=== PATIENT | male | born 1960 | race Caucasian/White ===

== ENCOUNTER 2017-08-03 15:48 | Emergency (ER) | payer OTHER, MEDICARE ==
[2017-08-03] MEDS ORDERED: ACETAMINOPHEN TAB 500 MG TAB PO STA (16:18)
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
--- NOTE | 2017-08-03 16:52 | XR ---
EXAMINATION TYPE: XR cervical spine trauma DATE OF EXAM: 08/03/2017 COMPARISON: NONE HISTORY: Neck pain TECHNIQUE: 6 views FINDINGS: There is plate with screws fusing anteriorly the cervical spine from C5 to C7. Posterior el ements are intact. I see no compression fracture. The neural foramina are fairly well-maintained. Riccardo antoaxial facet joint is normal. There are no cervical ribs. IMPRESSION: Cervical spine fusion surgery. No fracture seen. Anterior spurring noted at C4-5.
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
--- NOTE | 2017-08-03 16:57 | XR ---
EXAMINATION TYPE: XR pelvis AP view DATE OF EXAM: 08/03/2017 COMPARISON: None HISTORY: Pelvic pain TECHNIQUE: Single view FINDINGS: Pelvic ring is intact. Proximal femurs and hip joints are intact. Sacroiliac joints appear normal. IMPRESSION: No acute abnormality of the pelvis.
--- NOTE | 2017-08-03 16:58 | XR ---
EXAMINATION TYPE: XR thoracic spine 2V DATE OF EXAM: 08/03/2017 COMPARISON: NONE HISTORY: Back pain TECHNIQUE: 3 views FINDINGS: The vertebra have normal alignment. Posterior elements are intact. There is no paraspinal m ass. There is spurring of the endplates. I see no compression fracture. IMPRESSION: Degenerative spurring. No fracture seen.
[2017-08-03 17:35] VITALS: BP 144/78; PULSE 78; RESP 18; TEMP 98
--- NOTE | 2017-08-04 05:52 | CDI ---
Dear Karel Hayward DO: Please do addendum site of the Contusion. Thank you, Denise Montero, Project Management Manager. If you have any questions, please contact Manager Agriculture at [phone]. [facility]
== END 2017-08-03 17:35 | disposition home or self-care (01) ==
LOC: EC 15:48
DX: S40.012A Contusion of left shoulder, initial encounter (principal); M25.551 Pain in right hip; E78.5 Hyperlipidemia, unspecified; F41.9 Anxiety disorder, unspecified; Z87.891 Personal history of nicotine dependence; Z79.899 Other long term (current) drug therapy; Z88.0 Allergy status to penicillin; Z88.8 Allergy status to other drugs, medicaments and biological substances; Z91.013 Allergy to seafood; Z85.46 Personal history of malignant neoplasm of prostate; Z90.79 Acquired absence of other genital organ(s); Z98.890 Other specified postprocedural states; V43.52XA Car driver injured in collision with other type car in traffic accident, initial encounter; Y92.410 Unspecified street and highway as the place of occurrence of the external cause
CPT/HCPCS: 71046; 72050; 72070; 72170; 99284

== ENCOUNTER → 2018-04-06 | Outpatient (CLI) | payer MEDICARE, OTHER ==
--- NOTE | 2018-04-09 11:09 | CT ---
EXAMINATION TYPE: CT pelvis wo/w con DATE OF EXAM: 04/06/2018 COMPARISON: Outside films dated 03/21/2018 HISTORY: LLQ pain, abn hip xray, history of prostate CA CT DLP: 1887.6 mGycm Automated exposure control for dose reduction was used. CONTRAST: Performed without and with IV Contrast, patient injected with 100 mL of Isovue 300. Unenhanced follow ed by contrast enhanced CT of the pelvis was performed. Bone and soft tissue window settings are subm itted. FINDINGS: There is no evidence for fracture or dislocation. No osseous lesion is identified at this time. Mild degenerative joint space narrowing. Mild lower lumbar degenerative disc disease. No pelvic masses jeremy ntified. Penile prosthesis noted. No pathologic enhancement identified. IMPRESSION: NO FRACTURE, DISLOCATION OR OSSEOUS LESION.
== END | disposition home or self-care (01) ==
LOC: RADCTMAIN 07:57
PROVIDERS: ATTEND Family Medicine
DX: R93.5 Abnormal findings on diagnostic imaging of other abdominal regions, including retroperitoneum (principal)
CPT/HCPCS: 72194; Q9967

== ENCOUNTER → 2018-12-26 | Outpatient (CLI) | payer OTHER, MEDICARE ==
--- NOTE | 2018-12-26 15:44 | MR ---
EXAMINATION TYPE: MR lumbar spine wo/w con DATE OF EXAM: 12/26/2018 COMPARISON: MRI of the lumbar spine dated 07/19/[address] pelvis dated 04/06/2018. HISTORY: DDD with radiculopathy. Increasing pain since July 2017. TECHNIQUE: Multiplanar, multisequence images of the lumbar spine were acquired utilizing 9 ml mL intravenous Wing avist gadolinium contrast. FINDINGS: Vertebral bodies maintain normal vertebral body heights and alignment. Multilevel disc samira ccation is seen. Bone marrow signal is within normal limits other than a T2/T1 hyperintense vertebral body hemangioma of L5. Conus medullaris is unremarkable terminating at L1. Incidentally noted retroa ortic left renal vein. Incomplete evaluation and incomplete visualization of the kidneys. L1-L2: There is a right eccentric disc bulge creating moderate right and mild left neural foraminal n arrowing without spinal canal stenosis. Mild facet arthropathy. L2-L3: There is a broad-based disc bulge, also slightly right eccentric creating mild left and modera te right neural foraminal narrowing without spinal canal stenosis. Facet arthropathy is also seen. L3-L4: There is a small central annular tear and broad-based disc bulge resulting in moderate bilater al neural foraminal narrowing without spinal canal stenosis. Mild facet arthropathy. L4-L5: There is a right foraminal disc herniation on sagittal T2 nonfat sat image 11 in combination w ith facet arthropathy and ligamentum flavum buckling contributing to severe right neural foraminal na rrowing with mass effect on the exiting L4 nerve root. Findings are superimposed on a broad-based dis c bulge contributing to moderate left neural foraminal narrowing and overall very mild spinal canal s tenosis. L5-S1: There is a small right paracentral annular tear and disc herniation superimposed on a broad-ba sed disc bulge. Facet arthropathy is also noted contributing to moderate bilateral neural foraminal n arrowing without spinal canal stenosis. No suspicious postcontrast enhancement is seen. IMPRESSION: 1. Right foraminal disc herniation at L4-L5 in combination with facet arthropathy and ligamentum flav um buckling create severe right neural foraminal narrowing and mass effect on the exiting L4 nerve ro ot. Findings contribute overall very mild spinal canal stenosis. 2. Small right paracentral annular tear and disc herniation at L5-S1 contributing to moderate right n eural foraminal narrowing. Moderate left neural foraminal narrowing is also seen as result of the bro ad-based disc bulge and facet arthropathy. 3. Small central annular tear at L3-L4. 4. Overall moderate multilevel degenerative disc disease of the lumbar spine resulting in variable de grees of neural foraminal narrowing as detailed above. 5. No abnormal postcontrast enhancement.
== END ==
LOC: RADMRIMAIN 10:56
PROVIDERS: ATTEND Physical Medicine & Rehabilitation
DX: M48.07 Spinal stenosis, lumbosacral region (principal); M48.061 Spinal stenosis, lumbar region without neurogenic claudication; M51.17 Intervertebral disc disorders with radiculopathy, lumbosacral region; M51.16 Intervertebral disc disorders with radiculopathy, lumbar region; M46.97 Unspecified inflammatory spondylopathy, lumbosacral region; M46.96 Unspecified inflammatory spondylopathy, lumbar region; M79.89 Other specified soft tissue disorders
CPT/HCPCS: 72158; A9585

== ENCOUNTER → 2019-03-19 | Outpatient (CLI) | payer OTHER, MEDICARE ==
[2019-03-19 12:16] VITALS: BP 127/86; PULSE 84; RESP 18
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
== END | disposition home or self-care (01) ==
LOC: PNWHC3 11:43
PROVIDERS: ATTEND Specialist
DX: G89.29 Other chronic pain (principal); M47.26 Other spondylosis with radiculopathy, lumbar region; M46.96 Unspecified inflammatory spondylopathy, lumbar region; Z87.891 Personal history of nicotine dependence; Z88.0 Allergy status to penicillin; Z91.013 Allergy to seafood; Z88.8 Allergy status to other drugs, medicaments and biological substances; Z79.899 Other long term (current) drug therapy
CPT/HCPCS: 99211

== ENCOUNTER 2019-03-28 06:59 | Day surgery (SDC) | payer MEDICARE, OTHER ==
[2019-03-26 14:49] VITALS: BMI 65.9
[~2019-03-28 06:59] MED LIST: IOPAMIDOL M200 10 ML VIAL ONE; LACTATED RINGERS 1,000 ML IV SCH; LIDOCAINE 4% (PF) 5 ML AMP ONE; MIDAZOLAM 2 MG/2 ML VIAL ONE
[2019-03-28 07:19] VITALS: TEMP 97.3
[2019-03-28] MEDS ORDERED: LIDOCAINE 1% 20 ML VIAL (10MG/ML) FOR IV START INTRADERMA ONE (07:23)
[2019-03-28] MEDS ORDERED: IV FLUID CONTINUATION 1,000 ML IV ONE (08:55)
--- NOTE | 2019-03-28 09:11 | FL ---
Fluoroscopy HISTORY: Pain 7 seconds fluoroscopy time supplied to the referring clinician. 3 intraoperative C-arm images docume nt the procedure. See dictated report from anesthesia.
[2019-03-28 09:15] VITALS: BP 151/93; PULSE 67; RESP 16
--- NOTE | 2019-03-28 10:23 | P.PCN ---
Date of Procedure: 03/28/19 Procedure(s) Performed: PREOPERATIVE DIAGNOSIS : Lumbar spondylosis with Facet Arthropathy without myelopathy POSTOPERATIVE DIAGNOSIS: same PROCEDURE: First Diagnostic lumbar medial branch block with fluoroscopy at L2, L3, L4, L5 [bilateral] which covers facets L3-4, L4-5 and L5-S1 ANESTHESIA: Local anesthetic; moderate IV sedation with Versed, sedation time 19 minutes Fluoroscopy was used for the procedure and images were saved in the radiology portion of the chart. Surgeon: Cristiana Llanos MD PROCEDURE INDICATION: Lumbar back pain without radiculopathy, not responsive to conservative management. PROCEDURE DESCRIPTION: the patient was seen and identified in the preop holding area , risks and benefits and possible complications of the procedure and alternatives were discussed with the patient, and the patient agreed to proceed with the procedure and signed the consent . IV was started , vital signs were monitored during the procedure and fluoroscopy was used to maximize the benefit and accuracy of the needle placement, and sedation was given to decrease patient anxiety. Patient was taken to the procedure room and placed in prone position. The lumbar region was prepped using chlorhexidineX-2. Under strict sterile technique using AP fluoroscopy the bilateral sacral ala were identified and using ipsilateral oblique fluoroscopy ,the junction of the transverse process and the superior articulating process of the L3, L4, L5 vertebra which corresponds to the fluoroscopy image of the eye of the Cal dog for the medial branches were identified. Subsequently, after local infiltration of skin with lidocaine 1% 0.2 mL at each level , a 25-gauge 3.5" Quincke-type needle was placed at the junction of the base of the transverse process and the superior articular process at the appropriate level as well as the sacral ala, and the needle was advanced until the periosteum contacted, needle placement confirmed with AP and oblique fluoroscopy, 0.2 mL of Isovue 200 per level was injected which revealed no vascular uptake and after negative aspiration, 0.5 mL of [lido piot 4%] was injected at each level and the needle subsequently removed . At the end of the procedure and the needles were removed and a bandage applied after the skin was cleaned. The patient was taken to recovery room in stable condition and monitors in the recovery room for 20-30 minutes and discharged home in stable condition after discharge criteria met and patient will follow up in clinic in 2 weeks EBL: Minimal COMPLICATION: None.
== END 2019-03-28 09:25 | disposition home or self-care (01) ==
LOC: ORPAIN 06:59
PROVIDERS: ATTEND Anesthesiology
DX: G89.29 Other chronic pain (principal); M47.816 Spondylosis without myelopathy or radiculopathy, lumbar region; J45.909 Unspecified asthma, uncomplicated; E78.5 Hyperlipidemia, unspecified; M19.90 Unspecified osteoarthritis, unspecified site; F41.9 Anxiety disorder, unspecified; F32.9 Major depressive disorder, single episode, unspecified; Z87.891 Personal history of nicotine dependence; Z79.899 Other long term (current) drug therapy; Z88.0 Allergy status to penicillin; Z88.8 Allergy status to other drugs, medicaments and biological substances; Z91.013 Allergy to seafood; Z85.46 Personal history of malignant neoplasm of prostate; Z87.442 Personal history of urinary calculi; Z98.890 Other specified postprocedural states; Z90.79 Acquired absence of other genital organ(s); Z98.1 Arthrodesis status; Z82.49 Family history of ischemic heart disease and other diseases of the circulatory system
CPT/HCPCS: 64493; 64494; 64495; J2001; J2250; Q9966; 99152

== ENCOUNTER 2019-04-11 07:01 | Day surgery (SDC) | payer MEDICARE, OTHER ==
[2019-04-10 10:23] VITALS: BMI 29.9
[~2019-04-11 07:01] MED LIST changes: +BUPIVACAINE (PF) 0.5% 30 ML VIAL ONE; -IOPAMIDOL M200 10 ML VIAL ONE; -LIDOCAINE 4% (PF) 5 ML AMP ONE
[2019-04-11] MEDS ORDERED: ROPIVACAINE 5MG/ML 20ML VIAL ONE (07:02)
[2019-04-11 07:36] VITALS: TEMP 97.8
[2019-04-11] MEDS ORDERED: LIDOCAINE 1% (10MG/ML) FOR IV START INTRADERMA ONE (07:36)
--- NOTE | 2019-04-11 08:47 | P.PCN ---
Date of Procedure: 04/11/19 Procedure(s) Performed: PREOPERATIVE DIAGNOSIS : Lumbar spondylosis with Facet Arthropathy without myelopathy POSTOPERATIVE DIAGNOSIS: same PROCEDURE: First Diagnostic lumbar medial branch block with fluoroscopy at L2, L3, L4, L5 [bilateral] which covers facets L3-4, L4-5 and L5-S1 ANESTHESIA: Local anesthetic; moderate IV sedation with Versed, sedation time 17 minutes Fluoroscopy was used for the procedure and images were saved in the radiology portion of the chart. Surgeon: Cristiana Llanos MD PROCEDURE INDICATION: Lumbar back pain without radiculopathy, not responsive to conservative management. PROCEDURE DESCRIPTION: the patient was seen and identified in the preop holding area , risks and benefits and possible complications of the procedure and alternatives were discussed with the patient, and the patient agreed to proceed with the procedure and signed the consent . IV was started , vital signs were monitored during the procedure and fluoroscopy was used to maximize the benefit and accuracy of the needle placement, and sedation was given to decrease patient anxiety. Patient was taken to the procedure room and placed in prone position. The lumbar region was prepped using chlorhexidineX-2. Under strict sterile technique using AP fluoroscopy the bilateral sacral ala were identified and using ipsilateral oblique fluoroscopy ,the junction of the transverse process and the superior articulating process of the L3, L4, L5 vertebra which corresponds to the fluoroscopy image of the eye of the Cal dog for the medial branches were identified. Subsequently, after local infiltration of skin with lidocaine 1% 0.2 mL at each level , a 25-gauge 3.5" Quincke-type needle was placed at the junction of the base of the transverse process and the superior articular process at the appropriate level as well as the sacral ala, and the needle was advanced until the periosteum contacted, needle placement confirmed with AP and oblique fluoroscopy, and after negative aspiration, 0.5 mL of ropivacaine 0.5% was injected at each level and the needle subsequently removed . I had the contrast was not used for the procedure, as the patient is ALLERGIC to shellfish. At the end of the procedure and the needles were removed and a bandage applied after the skin was cleaned. The patient was taken to recovery room in stable condition and monitors in the recovery room for 20-30 minutes and discharged home in stable condition after discharge criteria met and patient will follow up in clinic in 2 weeks EBL: Minimal COMPLICATION: None.
[2019-04-11] MEDS ORDERED: LACTATED RINGERS 1,000 ML IV ONE (08:52)
[2019-04-11 08:54] VITALS: RESP 18
[2019-04-11 09:08] VITALS: BP 137/84; PULSE 62
--- NOTE | 2019-04-11 13:45 | FL ---
EXAMINATION TYPE: FL guided pain mgmt statistic DATE OF EXAM: 04/11/2019 HISTORY: Fluoroscopy time 6 seconds of fluoroscopy provided. IMPRESSION: 1. Fluoroscopy time.
== END 2019-04-11 09:22 | disposition home or self-care (01) ==
LOC: ORPAIN 07:01
PROVIDERS: ATTEND Anesthesiology
DX: M47.816 Spondylosis without myelopathy or radiculopathy, lumbar region (principal); Z88.0 Allergy status to penicillin; Z88.8 Allergy status to other drugs, medicaments and biological substances
CPT/HCPCS: 64493; 64494; 64495; J2250; J2795; 99152

== ENCOUNTER → 2019-04-25 | Outpatient (CLI) | payer MEDICARE, OTHER ==
[2019-04-25 13:39] VITALS: BP 127/74; PULSE 93; RESP 16
--- NOTE | 2019-04-26 20:02 | P.PAINPG ---
Subjective Progress Note Date: 04/25/19 This is a follow-up visit for this 59 years old male with a chronic history of severe low back pain, and neck pain, diagnosed with lumbar spondylosis with lumbar facet arthropathy and lumbar radiculopathy, recently we have done diagnostic medial branch block lumbar area, he had excellent pain relief after diagnostic medial branch block on 2 different occasions, he reported that his pain level was 8/10 before the block ,dropped to 0/10 after the block, and he gets similar result after the second diagnostic medial branch block, the pain relief was only for short-term, he continued to use pain medication [place] 10/325 every 4 hours when necessary Robaxin 750 mg 3 times a day and Neurontin 300 mg 3 times a day, he denies any side effect of the medication and is getting prescription refills from his primary care Objective - Vital Signs Vital signs: Vital Signs Temp Pulse 93 04/25/19 13:33 Resp 16 04/25/19 13:33 BP 127/74 04/25/19 13:33 Pulse Ox 95 04/25/19 13:33 - Exam Physical Examinations : -Constitutiona : Cooperative , not in acute distress . -HEENT : nech : supple , no Lymphadenopathy , normal thyroid size . : eyes : no ptosis , no icterus, no photophobia . - neurologic : Cranial nerve II to XII intact , no focal neurological deffecit . -psychatric : alert , oriented X 3 , appropriate affect , intact judgment and insight . -Lymphatic : no Lymphadenopathy . - musculoskeltal : Lumber spine moter stegnth lower extremities ,thigh and legs 5/5 Right side , 5/5 Left side deep tendon reflexes : normal Knee Jerk , normal ankle Jerk lumber facet Loading Test =positive Right , positive Left Range of motion of the lumbar spine Flexion 30 degrees, extension 10 degrees strait leg raising test = positive at 30 degree Fabere test= positive Right , and positive LT . tenderness over the Sacroiliac joint on the Right , and Left sides Assessment and Plan Plan: Assessment and plan= lumbar radiculopathy Lumbar spondylosis with lumbar facet arthropathy Cervical radiculopathy Patient had positive results after diagnostic medial branch block, pain improved more than 80% after each diagnostic block He will be good candidate to have RFA of the medial branch lumbar area at L2, L3, L4, L5 Patient should continue to use his current medication Neurontin 300 mg 3 times a day [place] 10/325 every 4 hours when necessary Robaxin 750 mg 3 times a day, he denies any side effect of the medication Time with Patient: Less than 30 PQRS Measure Charge Sheet Measure #130: Documentation of Current Meds in Medical Chart: Patient's medications documented in chart Measure #226: Tobacco Use: Screen & Cessation Intervention: Pt not a tobacco user Measure #111: Pneumonia Vaccination: Pneumococcal vaccine NOT administered or previously given Measure #47: Advance Care Plan: Advance care planning discussed & documented, pt chose/unable to give Measure #412: Opioid Treatment Agreement: No documentation of signed opioid treatment agreement Measure #408: Opioid Therapy Follow-up Evaluation: Patient had NO f/u eval minimum every 3 months during opioid therapy Measure #317: Preventitive Care & Scrn High Bld Press & F/U: Normal blood pressure, f/u not required Measure #128: Body Mass Index (BMI) Screening & Follow-up: BMI documented ABOVE normal parameters - f/u documented Measure #131: Pain Assessment & Follow-up: Pain positive & plan documented, Follow-up scheduled Measure #431: Unhealthy Alcohol Use Preventative Care & Scrn: Patient not identified as an unhealthy alcohol user PQRS Narrative: Smoking Status Former smoker Blood Pressure 127/74 Pain Intensity [Neck] 8 Pain Intensity [Lower Back] 5 Scale Used Numeric (1 - 10) Hx Alcohol Use (MH) No Home Medications: Ambulatory Orders Atorvastatin [Lipitor] 80 mg PO PC-LUNCH 08/14/13 Pantoprazole Sodium [Protonix] 40 mg PO QAM 08/14/13 clonazePAM [KlonoPIN] 2 mg PO BID 08/14/13 Hydrocodone/Acetaminophen [[place] 10-325] 1 tab PO Q4H PRN #20 tab 08/17/13 Gabapentin [Neurontin] 300 mg PO TID 03/26/19 Methocarbamol [Robaxin] 750 mg PO TID 04/10/19 Controlled Substance Measures - Controlled Substance Measures Is patient prescribed a controlled substance at discharge?: No
== END | disposition home or self-care (01) ==
LOC: PNWHC3 13:14
PROVIDERS: ATTEND Specialist
DX: G89.29 Other chronic pain (principal); M47.26 Other spondylosis with radiculopathy, lumbar region; M46.96 Unspecified inflammatory spondylopathy, lumbar region; Z87.891 Personal history of nicotine dependence; Z79.899 Other long term (current) drug therapy
CPT/HCPCS: 99211

== ENCOUNTER → 2019-04-30 | Outpatient (CLI) | payer OTHER ==
--- NOTE | 2019-04-30 22:12 | CT ---
EXAMINATION TYPE: CT cervical spine wo con DATE OF EXAM: 04/30/2019 COMPARISON: Cervical spine x-ray August 03, 2017 HISTORY: Spondylosis w/radiculopathy per order. Neck pain since July [address] DLP: 656.20 mGycm. Automated Exposure Control for Dose Reduction was Utilized. TECHNIQUE: CT scan of the cervical spine is obtained without contrast, axial images are obtained, sa gittal and coronal reformatted images are also reviewed. FINDINGS: Cervical spine is visualized in its entirety from C1 through upper thoracic levels, coronal images predemonstrate levoconvex scoliosis centered and visualized upper thoracic spine. There is re demonstration of anterior fusion plate with ossific fusion C5-C7 vertebra. There is large osteophyte or fractured spur from the anterior-inferior margin of the C4 vertebra. Vertebral body heights and di sc space heights are maintained above surgical levels. Mild disc space narrowing C7-T1 level is seen. Nonspecific sclerotic focus right posterior T1 vertebral sagittal image 48. Moderate disc space narr owing and anterior spurring T2-T3 level is noted. Review of axial images shows C2-C3 and C3-C4 levels to appear within normal limits. Axial images at C4-C5 level show broad-based posterior disc protrusion with uncovertebral facet spurr ing causing moderate left and mild right-sided neural foraminal narrowing. Axial images at C5-C6 level show surgical change and bony fusion with left uncovertebral facet spurri ng causing [id number] neural foraminal narrowing. Axial images at C6-C7 level show anterior fusion hardware, bilateral neural foramina are patent despi te right-sided uncovertebral facet degenerative changes. Axial images at C7-T1 level show anterior fusion hardware, spinal canal preserved, bilateral neural f oramina are patent. Thyroid gland is felt within normal limits. Visualized lung apices are clear. IMPRESSION: Postsurgical changes C5-C7 level with ossific fusion or desired arthrodesis redemonstrate d. Alignment is stable and satisfactory. Some multilevel degenerative changes are noted as detailed a beryl.
== END | disposition home or self-care (01) ==
LOC: RADCTMAIN 16:09
PROVIDERS: ATTEND Neurological Surgery
DX: M47.22 Other spondylosis with radiculopathy, cervical region (principal); Z98.1 Arthrodesis status
CPT/HCPCS: 72125

== ENCOUNTER → 2019-05-08 | Day surgery (SDC) | payer MEDICARE, OTHER ==
[2019-05-07 11:15] VITALS: BMI 29.5
[~2019-05-08] MED LIST changes: -BUPIVACAINE (PF) 0.5% 30 ML VIAL ONE; +IV FLUID CONTINUATION 1,000 ML IV ONE; +LIDOCAINE 1% (10MG/ML) FOR IV START INTRADERMA ONE; +ROPIVACAINE 5MG/ML 20ML VIAL ONE; +fentaNYL (PF) 50 MCG/ML 2 ML AMP ONE
[2019-05-08 09:32] VITALS: RESP 16; TEMP 98
[2019-05-08 09:48] LABS: Glucose,Whole Blood 105 mg/dL (75-99)
--- NOTE | 2019-05-08 10:26 | P.GSHP ---
History of Present Illness H&P Date: 05/08/19 This is 59 years old male with a chronic history of severe low back pain, and neck pain, diagnosed with lumbar spondylosis with lumbar facet arthropathy and lumbar radiculopathy, and he is here today to have RFA of the right-sided medial branch lumbar area. Past Medical History Past Medical History: Cancer, Chest Pain / Angina, GERD/Reflux, Hyperlipidemia Additional Past Medical History / Comment(s): prostate cancer,hypoglycemia, "takes him longer to stop bleeding after tooth extraction", hx kidney stone, occ SOB History of Any Multi-Drug Resistant Organisms: None Reported Past Surgical History: Back Surgery, Heart Catheterization, Hernia Repair, Orthopedic Surgery, Prostate Surgery Additional Past Surgical History / Comment(s): RADICAL PROSTATECTOMY 08/16/13. Neck surgery,BILAT ROTATOR CUFF. PAIN CLINIC PROCEDURES Past Anesthesia/Blood Transfusion Reactions: Motion Sickness, Postoperative Nausea & Vomiting (PONV) Additional Past Anesthesia/Blood Transfusion Reaction / Comment(s): states profuse sweating and severe vomiting after previous surgeries at [facility] except one he had on shoulder 6-8 yrs ago Smoking Status: Former smoker - Past Family History Mother Family Medical History: Unable to Obtain Father Family Medical History: Myocardial Infarction ([place]) Medications and Allergies Home Medications Medication Instructions Recorded Confirmed Type Atorvastatin [Lipitor] 80 mg PO PC-LUNCH 08/14/13 05/08/19 History Pantoprazole Sodium [Protonix] 40 mg PO QAM 08/14/13 05/08/19 History clonazePAM [KlonoPIN] 2 mg PO BID 08/14/13 05/08/19 History Hydrocodone/Acetaminophen [[place] 1 tab PO Q4H PRN #20 tab 08/17/13 05/08/19 Rx 10-325] Gabapentin [Neurontin] 300 mg PO TID 03/26/19 05/08/19 History Methocarbamol [Robaxin] 750 mg PO TID 04/10/19 05/08/19 History Allergies Allergy/AdvReac Type Severity Reaction Status Date / Time Penicillins Allergy Dyspnea, Verified 05/08/19 09:35 rash prednisone Allergy Confusion Verified 05/08/19 09:35 Neuromuscular Blockers, AdvReac Severe Unknown Verified 05/08/19 09:35 Steroidal Surgical - Exam Vital Signs Temp Pulse Resp BP Pulse Ox 98.0 F 65 16 133/87 97 05/08/19 09:30 05/08/19 09:30 05/08/19 09:30 05/08/19 09:30 05/08/19 09:30 -Constitutiona : Cooperative , not in acute distress . -HEENT : nech : supple , no Lymphadenopathy , normal thyroid size . : eyes : no ptosis , no icterus, no photophobia . - neurologic : Cranial nerve II to XII intact , no focal neurological deffecit . -psychatric : alert , oriented X 3 , appropriate affect , intact judgment and insight . -Lymphatic : no Lymphadenopathy . - musculoskeltal : Lumber spine moter stegnth lower extremities ,thigh and legs 5/5 Right side , 5/5 Left side deep tendon reflexes : normal Knee Jerk , normal ankle Jerk lumber facet Loading Test =positive Right , positive Left Range of motion of the lumbar spine Flexion 30 degrees, extension 10 degrees strait leg raising test = positive at 30 degree Fabere test= positive Right , and positive LT . tenderness over the Sacroiliac joint on the Right , and Left sides Results - Labs Abnormal Lab Results - Last 24 Hours (Table) 05/08/19 Range/Units 09:46 POC Glucose (mg/dL) 105 H (75-99) mg/dL Assessment and Plan Plan: Assessment and plan= lumbar radiculopathy Lumbar spondylosis with lumbar facet arthropathy Cervical radiculopathy Patient had positive results after diagnostic medial branch block, pain improved more than 80% after each diagnostic block Patient here today to have RFA of the medial branch lumbar area at right L2, L3, L4, L5 Time with Patient: Less than 30
--- NOTE | 2019-05-08 10:58 | P.PCN ---
Date of Procedure: 05/08/19 Procedure(s) Performed: PREOPERATIVE DIAGNOSIS: 1-Lumbar Spondylosis with Facet Arthropathy without myelopathy. POSTOPERATIVE DIAGNOSIS: 1- Lumbar Spondylosis with Facet Arthropathy without myelopathy. PROCEDURES : Right Radiofrequency thermocoagulation L2 , L3 , L4 , and L5 medial branch, with fluoroscopic guidance (fluoroscopy images available in the radiology department) ( to denervate the facet joint at L3-4 , L4-5 ,and L5-S1 levels ) ANESTHESIA: Moderate sedation with intravenous versed 2 mg and fentaneyl 100 mcg, and local infiltration with Ropivacaine 0.5 % . EBL: Minimal PROCEDURE INDICATION: The patient with low back pain secondary to lumbar facet arthropathy who had more than 50% relief of her pain with previous diagnostic lumbar medial branch block with bupivacaine. PROCEDURE DESCRIPTION / TECHNIQUE: The patient was seen and identified in the preoperative area. Risks, benefits, complications, including but not limited to risk of infection ,bleeding , allergic reactions to the medications and no complete pain releife , and alternatives were discussed with the patient, the patient agreed to proceed with the procedure and signed the consent. IV was started. Vital signs remained stable throughout the procedure. Patient was taken to the OR and time out was completed. The patient was placed in the prone position on the procedure table. The lumber area was prepped and draped in the usual sterile fashion. . Vital signs were closely monitored during the procedure .IV sedation was used during the procedure to decrease patients anxiety. Using AP and then oblique fluoroscopy, the ``eye of the Cal dog corresponding to the connection between the superior and transverse articular processes of right L2 ,L3, L4, and L5 were identified, marked, and localized with 1% lidocaine. Subsequently, a 18 -km radiofrequency cannula with a 10-mm active tip was advanced guided by fluoroscopy to each of the``eyes of the Cal dog at right L2 , L3, L4, and L5. Each site then underwent sensory testing at 50 Hz and 0 to 1 volt and motor testing at 2.5 Hz and 0 to 3 volt with local stimulation, but no radicular symptoms down the legs. Thereafter each sites underwent radiofrequency thermocoagulation at 80 degrees celsius for 90 seconds after injecting 0.5 ml of PF Ropivacaine 1ml, then after the thermocoagulation done , 1 ml of the block solution containing 4 ml of Ropivacaine 0.5% was injected at the right L2 , L3 , L4 , and L5 , levels after negative aspiration of CSF and blood and with no paresthesias. Cannulas were retracted while injecting lidocaine 1% until the needle is out. At the end of the procedure, the skin was cleansed and bandages were applied. COMPLICATIONS: No acute complications. DISPOSITION / PLANS: The patient was placed in a supine position and transferred to the recovery area in a stable condition for observation and was discharged from the recovery room after meeting discharge criteria. Home discharge instructions given to the patient by the staff. The patient was re examined prior to discharge. The patient will schedule a follow up in the clinic in 2-4 weeks.
[2019-05-08 11:28] VITALS: BP 128/78; PULSE 77
--- NOTE | 2019-05-08 11:50 | FL ---
Fluoroscopy HISTORY: Pain 15 seconds fluoroscopy time supplied to the referring clinician. 3 intraoperative C-arm images docum ent the procedure. See dictated report from anesthesia.
== END ==
LOC: ORPAIN 09:15
PROVIDERS: ATTEND Specialist
DX: G89.29 Other chronic pain (principal); M47.26 Other spondylosis with radiculopathy, lumbar region; M54.12 Radiculopathy, cervical region; K21.9 Gastro-esophageal reflux disease without esophagitis; E16.2 Hypoglycemia, unspecified; E78.5 Hyperlipidemia, unspecified; Z90.79 Acquired absence of other genital organ(s); Z87.891 Personal history of nicotine dependence; Z87.442 Personal history of urinary calculi; Z85.46 Personal history of malignant neoplasm of prostate; Z88.0 Allergy status to penicillin; Z88.8 Allergy status to other drugs, medicaments and biological substances; Z82.49 Family history of ischemic heart disease and other diseases of the circulatory system
CPT/HCPCS: 64635; 64636 ×2; J2250; J3010; J2795; 99152

== ENCOUNTER 2019-10-31 18:18 | Emergency (ER) | payer OTHER, MEDICARE ==
[2019-10-31 18:26] VITALS: RESP 18
[2019-10-31] MEDS ORDERED: LIDOCAINE 5% PATCH TOPICAL STA (18:28)
[2019-10-31] MEDS ORDERED: HYDROmorphone 0.5 MG/0.5 ML SYRINGE IM STA (18:29)
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
[2019-10-31] MEDS ORDERED: diazePAM 2 MG TAB PO STA (19:56)
[2019-10-31 20:25] VITALS: BP 155/99; PULSE 68; TEMP 97.7
== END 2019-10-31 20:50 | disposition home or self-care (01) ==
LOC: EC 18:18
DX: G89.29 Other chronic pain (principal); M54.5 Low back pain; F41.9 Anxiety disorder, unspecified; F32.9 Major depressive disorder, single episode, unspecified; E78.5 Hyperlipidemia, unspecified; Z88.0 Allergy status to penicillin; Z88.8 Allergy status to other drugs, medicaments and biological substances; Z85.46 Personal history of malignant neoplasm of prostate; Z87.442 Personal history of urinary calculi; Z79.899 Other long term (current) drug therapy; Z98.890 Other specified postprocedural states
CPT/HCPCS: 96372; 99283; J1170

== ENCOUNTER 2019-11-12 08:45 | Day surgery (SDC) | payer MEDICARE, OTHER ==
[2019-11-11 10:58] VITALS: BMI 28.8
--- NOTE | 2019-11-12 09:12 | P.PN ---
Progress Note - Text Progress Note Date: 11/12/19 The patient showed up for his scheduled procedure namely left lumbar medial branch RFA however he is having new symptoms now with pain radiating down the left leg and weakness in the left leg with multiple falls. The patient also lost about 10 pounds of his weight over the last month. He also complains of nocturnal lower back pain. Given this new development I think we should get an MRI done on the lumbar spine with and without contrast before we proceed with any procedures on his back. Decision was made to cancel his scheduled procedure for left lumbar medial branch RFA today.
== END 2019-11-12 09:10 ==
LOC: ORPAIN 08:45
PROVIDERS: ATTEND Anesthesiology
DX: Z53.8 Procedure and treatment not carried out for other reasons (principal)

== ENCOUNTER → 2019-11-25 | Outpatient (CLI) | payer OTHER, MEDICARE ==
[2019-11-25 11:04] VITALS: BP 142/106; PULSE 88; RESP 18; TEMP 98.2
--- NOTE | 2019-11-27 07:55 | P.PN ---
Subjective Progress Note Date: 11/25/19 This follow-up visit for this 59 years old male with a chronic history of severe low back pain ,diagnosed with lumbar degenerative disc disease ,and lumbar spondylosis, patient supposed to have RFA of the medial branch lumbar area but the procedure was canceled, because patient had the new symptoms and we ordered new MRI of the lumbar spine, and patient had a follow-up visit to discuss the results of the MRI, but during the interview patient brought the disc with , and I was not able to open the disc, and we were waiting for the report of the MRI of the lumbar spine to be read by the radiologist at [facility], and the best option, is to wait for the results of the MRI report , and dep ending on that be can decide to proceed with RFA of the medial branch, versus lumbar epidural steroid injection, only concern is patient had ALLERGY to steroids and we have to decide if patient had true ALLERGY, and if patient had side effects to steroid, if patient had ALLERGY to steroid then we, cannot proceed with the epidural steroid injection Objective - Vital Signs Vital signs: Vital Signs Temp 98.2 F 11/25/19 10:54 Pulse 88 11/25/19 10:54 Resp 18 11/25/19 10:54 BP 142/106 11/25/19 10:54 Pulse Ox 96 11/25/19 10:54 Intake & Output 11/25/19 11/26/19 11/26/19 18:59 06:59 18:59 Weight 84.368 kg
== END | disposition home or self-care (01) ==
LOC: PNWHC3 10:23
PROVIDERS: ATTEND Specialist
DX: G89.29 Other chronic pain (principal); M51.36 Other intervertebral disc degeneration, lumbar region; M47.816 Spondylosis without myelopathy or radiculopathy, lumbar region; Z98.890 Other specified postprocedural states
CPT/HCPCS: 99211

== ENCOUNTER → 2019-12-23 | Outpatient (CLI) | payer OTHER, MEDICARE ==
[2019-12-23 10:06] VITALS: BP 129/80; PULSE 78; RESP 18; TEMP 98.3
--- NOTE | 2019-12-23 10:23 | P.PAINPG ---
Subjective Progress Note Date: 12/23/19 Barrie is a 59-year-old gentleman presented today for follow-up. He is status post radio frequency ablation on the right side. He reports that helped significantly but still has a lot of left. Pain is across low back with some radiation to the anterior thigh. No radiation block beyond the knee. He denies any overt weakness. He has pain which she is taking ibuprofen, hydrocodone, and Robaxin regularly. He said he is weaning himself off the medication does not like to take them. He denies any overt weakness in his upper or lower extremities. Denies any bowel or bladder incontinence. Objective - Vital Signs Vital signs: Vital Signs Temp 98.3 F 12/23/19 10:00 Pulse 78 12/23/19 10:00 Resp 18 12/23/19 10:00 BP 129/80 12/23/19 10:00 Pulse Ox 98 12/23/19 10:00 - Exam General: Awake and alert oriented 3 no distress Respiratory exam: No audible wheezing no accessory muscle usage Cardiovascular exam: regular rate, palpable bilateral pulses, no lower extremity edema Abdominal exam: No distention nontender to palpation Cervical spine: Normal alignment, Spurling's negative, facet loading negative, Plate Glass Installer strength is 5/5, ramirez negative Lumbar spine: Loss of lumbar lordosis, normal alignment, tender to palpation over bilateral paraspinal muscles, facet loading is positive bilaterally. Straight leg raise is negative. Limited range of motion due to pain with flexion, extension and side bending. Sacroiliac joints: Nontender to palpation, SMILEY is negative, Gaenselon negative Neuro exam: Normal sensation in bilateral upper extremities, deep tendon reflexes are 2+ bilateral upper extremities. Normal sensation in bilateral lower extremities. Deep tendon reflexes are 2+ in lower extremities Psych exam: Cooperative, appropriate mood Assessment and Plan Assessment: #1 lumbar spondylosis without myelopathy #2 lumbar radiculopathy Plan: At this time we will schedule him for bilateral radiofrequency ablation of the L4 5 L5-S1 levels. We'll do it under sedation. PQRS Measure Charge Sheet Measure #130: Documentation of Current Meds in Medical Chart: Patient's medications documented in chart Measure #226: Tobacco Use: Screen & Cessation Intervention: Pt screened for tobacco use AND intervention given Measure #111: Pneumonia Vaccination: Pneumococcal vaccine administered or previously received Measure #47: Advance Care Plan: Advance care planning discussed & documented, plan or surrogate given Measure #408: Opioid Therapy Follow-up Evaluation: Patient had NO f/u eval minimum every 3 months during opioid therapy Measure #317: Preventitive Care & Scrn High Bld Press & F/U: Normal blood pressure, f/u not required Measure #128: Body Mass Index (BMI) Screening & Follow-up: BMI documented within normal parameters Measure #131: Pain Assessment & Follow-up: Pain positive & plan documented Measure #431: Unhealthy Alcohol Use Preventative Care & Scrn: Patient not identified as an unhealthy alcohol user PQRS Narrative: Smoking Status Former smoker Blood Pressure 129/80 Pain Intensity [Lower Back] 7 Scale Used Numeric (1 - 10) Hx Alcohol Use (MH) No Home Medications: Ambulatory Orders Atorvastatin [Lipitor] 80 mg PO PC-LUNCH 08/14/13 Pantoprazole Sodium [Protonix] 40 mg PO QAM 08/14/13 clonazePAM [KlonoPIN] 2 mg PO BID 08/14/13 Hydrocodone/Acetaminophen [[place]ake 10-325] 1 tab PO Q4H PRN #20 tab 08/17/13 methocarbamoL [Robaxin] 750 mg PO TID 04/10/19 Controlled Substance Measures - Controlled Substance Measures Is patient prescribed a controlled substance at discharge?: No
== END | disposition home or self-care (01) ==
LOC: PNWHC3 09:51
PROVIDERS: ATTEND Hospitalist
DX: M47.26 Other spondylosis with radiculopathy, lumbar region (principal); Z87.891 Personal history of nicotine dependence; Z79.899 Other long term (current) drug therapy; Z79.891 Long term (current) use of opiate analgesic
CPT/HCPCS: 99211

== ENCOUNTER 2020-07-03 11:02 | Day surgery (SDC) | payer OTHER ==
[2020-07-01 16:26] VITALS: BMI 29.5
[2020-07-03] MEDS ORDERED: LIDOCAINE 1% (10MG/ML) FOR IV START INTRADERMA ONE (11:50)
[2020-07-03 11:51] VITALS: TEMP 98.3
[2020-07-03] MEDS ORDERED: LACTATED RINGERS 1,000 ML IV ONE (11:51)
[2020-07-03] MEDS ORDERED: fentaNYL (PF) 50 MCG/ML 2 ML AMP ONE (11:56)
[2020-07-03] MEDS ORDERED: MIDAZOLAM 2 MG/2 ML VIAL ONE (11:56)
[2020-07-03] MEDS ORDERED: ROPIVACAINE 5MG/ML 20ML VIAL ONE (11:57)
[2020-07-03] MEDS ORDERED: LIDOCAINE 1% INJ 10MG/ML (20 ML MDV) ONE (11:57)
[2020-07-03] MEDS ORDERED: IV FLUID CONTINUATION 1,000 ML IV ONE (12:27)
[2020-07-03 12:29] VITALS: RESP 16
[2020-07-03 12:44] VITALS: BP 125/81; PULSE 87
--- NOTE | 2020-07-03 14:49 | FL ---
Fluoroscopy INDICATION: Pain FINDINGS: Fluoroscopy time: 25 seconds. Images obtained: 5. IMPRESSIONS: 1. Documentation of fluoroscopy.
--- NOTE | 2020-07-06 10:31 | P.PCN ---
Date of Procedure: 07/03/20 Description of Procedure: PREOPERATIVE DIAGNOSIS: Lumbar Spondylosis POSTOPERATIVE DIAGNOSIS: Same PROCEDURES: Radiofrequency ablation of the L2, L3, L4, L5 medial branches with fluoroscopic guidance on the left side SURGEON: Jose Mcelroy MD. ANESTHESIA: Lidocaine 1% 5 mL, MAC with anesthesia team EBL: Minimal Fluoroscopy was used for the procedure and images were saved in the radiology portion of the chart. PROCEDURE INDICATION: The patient with low back pain secondary to lumbar facet arthropathy who had more than 50% relief of pain with previous diagnostic lumbar medial branch block X2. PROCEDURE DESCRIPTION / TECHNIQUE: The patient was seen and identified in the preoperative area. Risks, benefits, complications, including but not limited to risk of infection ,bleeding , allergic reactions to the medications and incomplete pain relief , and alternatives were discussed with the patient, the patient agreed to proceed with the procedure and signed the consent. IV was started. The operative site was marked. Patient was taken to the OR and time out was completed. The patient was placed in the prone position on the procedure table. The lumbar area was prepped and draped in the usual sterile fashion. . Vital signs were closely monitored during the procedure .IV sedation was used during the procedure to decrease patient's anxiety. Using AP and then oblique fluoroscopy, the "eye of the Cal dog" corresponding to the connection between the superior and transverse articular processes of the L3 and L4 and L5 as well as the sacral ala were identified, marked, and localized with 1% lidocaine. Subsequently, an 18 [id number] mm radiofrequency cannula with a 10-mm active tip was advanced guided by fluoroscopy to the identified target at each site. Needle positioning was confirmed on AP, oblique and lateral fluoroscopy. Motor testing at 2.5 Hz was done with paraspinal muscle stimulation only, and no radicular symptoms down the legs. Then 1 mL of 0.5% ropivacanie was injected in each site. Radiofrequency thermocoagulation at 80 degrees celsius for 90 seconds was then performed. [place] were removed. Sterile dressings were applied. Of note the patient did have this procedure done on the right side last year. He notes today, however his left side is what is bothering him and that his right side is doing very well. He has had successful medial branches block bilaterally in the past and would like to proceed with just the left side today. COMPLICATIONS: No acute complications. DISPOSITION / PLANS: The patient was placed in a supine position and transferred to the recovery area in a stable condition for observation and was discharged from the recovery room after meeting discharge criteria. Home discharge instructions given to the patient by the staff. The patient will follow up in clinic in 4 weeks.
== END 2020-07-03 12:59 | disposition home or self-care (01) ==
LOC: ORPAIN 11:02
PROVIDERS: ATTEND Anesthesiology
DX: M47.816 Spondylosis without myelopathy or radiculopathy, lumbar region (principal); I25.10 Atherosclerotic heart disease of native coronary artery without angina pectoris; E78.5 Hyperlipidemia, unspecified; Z85.46 Personal history of malignant neoplasm of prostate; Z87.442 Personal history of urinary calculi; M19.90 Unspecified osteoarthritis, unspecified site; K21.9 Gastro-esophageal reflux disease without esophagitis; Z97.2 Presence of dental prosthetic device (complete) (partial); Z79.891 Long term (current) use of opiate analgesic; Z79.899 Other long term (current) drug therapy; Z88.0 Allergy status to penicillin; Z88.8 Allergy status to other drugs, medicaments and biological substances
CPT/HCPCS: 64635; 64636 ×2; J2250; J2001; J3010; J2795

== ENCOUNTER → 2021-03-19 | Outpatient (CLI) | payer MEDICARE, OTHER ==
--- NOTE | 2021-03-19 11:21 | US ---
EXAMINATION TYPE: US venous doppler duplex LE DATE OF EXAM: 03/19/2021 10:57 AM COMPARISON: NONE CLINICAL HISTORY: R79.1 abnormal coagulation profile. Bilateral calf pain x 2 weeks SIDE PERFORMED: Bilateral TECHNIQUE: The lower extremity deep venous system is examined utilizing real time linear array sonog day with graded compression, doppler sonography and color-flow sonography. VESSELS IMAGED: Common Femoral Vein Deep Femoral Vein Greater Saphenous Vein * Femoral Vein Popliteal Vein Small Saphenous Vein * Proximal Calf Veins (* superficial vessels) Right Leg: Appears negative for DVT Left Leg: Appears negative for DVT Grayscale, color doppler, spectral doppler imaging performed of the deep veins of the bilateral lower extremities. There is normal flow, compressibility, vascular waveforms. IMPRESSION: No ultrasound evidence for acute DVT in either lower extremity.
--- NOTE | 2021-03-19 20:05 | CT ---
EXAMINATION TYPE: CT angio chest DATE OF EXAM: 03/19/2021 COMPARISON: None HISTORY: Abnormal coagulation profile Stat hold and call CT DLP: 350.10 mGycm Automated exposure control for dose reduction was used. CONTRAST: Performed with IV Contrast, patient injected with 100 mL of Isovue 370. Images obtained from the thoracic inlet to the diaphragm with IV contrast. There are 3-D post process ed images. There is some mild interstitial density and subpleural infiltrate right posterior lung base. There is no pleural effusion. Heart is top normal in size. There is no pericardial effusion. The upper lung f ields appear clear. There is normal contrast opacification of the pulmonary arteries. There are no filling defects. There is suboptimal contrast density in the smaller branches of the right lower lobe pulmonary artery. Thoracic aorta appears intact. There is no sign of aneurysm or dissection. The ascending aorta measur es 3.8 cm. There is no mediastinal adenopathy. There are no hilar masses. The thoracic spine is intact. There is no compression fracture. There is degenerative hypertrophic sp urring in the mid and lower thoracic spine anteriorly. Sternum is intact. IMPRESSION: No evidence of pulmonary embolism. Mild posterior subpleural pneumonia in the right lower lobe. No [place] spicious pulmonary mass.
== END | disposition home or self-care (01) ==
LOC: RADUSWWP 10:30
PROVIDERS: ATTEND Family Medicine
DX: R79.1 Abnormal coagulation profile (principal); J18.1 Lobar pneumonia, unspecified organism; M79.662 Pain in left lower leg; M79.661 Pain in right lower leg
CPT/HCPCS: 93970; 71275; Q9967

== ENCOUNTER → 2022-09-13 | Outpatient (CLI) | payer OTHER, MEDICARE ==
--- NOTE | 2022-09-13 10:33 | MR ---
EXAMINATION TYPE: MR cervical spine wo/w con DATE OF EXAM: 09/13/2022 COMPARISON: CT scan 04/30/2019 HISTORY: Severe neck pain, left side, radiating into left shoulder. Hx surgery. TECHNIQUE: Multiplanar, multisequence images of the cervical spine were acquired without contrast and with 9 mL intravenous Gadavist gadolinium contrast. Diffusion weighted imaging was performed. C2-C3: No evidence for degenerative disc disease. No disc bulge/herniation or protrusion. No Canal stenosis. Foramina are patent bilaterally. Mild uncovertebral joint hypertrophy. There is moderate l ateral axial joint degenerative change with minimal pannus formation. C3-C4: No evidence for degenerative disc disease. No disc bulge/herniation or protrusion. No Canal stenosis. Foramina are patent bilaterally. C4-C5: Slight anterolisthesis with bilateral uncovertebral joint. There is bilateral facet arthropath y with mild left and moderate right foraminal protrusion. No canal stenosis. Broad-based minimal disc bulging with mild effacement of thecal sac. C5-C6: Postsurgical changes compatible with anterior fixation plate for fusion. There is bilateral un covertebral joint hypertrophy and circumferential disc bulging but no discrete herniation. Mild bilat eral facet arthropathy with moderate bilateral foraminal encroachment but no canal stenosis. C6-C7: Postsurgical changes with bilateral mild uncovertebral joint hypertrophy. There is mild bilate ral foraminal encroachment but no evidence of canal stenosis or discrete herniation. C7-T1: No evidence for degenerative disc disease. No disc bulge/herniation or protrusion. No Canal stenosis. Foramina are patent bilaterally. Mild increased signal\thickening of the left nerve root C 7-T1. Left uncovertebral joint and there may be slight contact of the nerve root correlate clinically . . Cervical segments are intact. There is normal alignment. Cervical spinal cord is of normal signal . Craniovertebral junction relationships are within normal limits. On the sagittal images there is a disc protrusion in the upper thoracic spine and the approximate lev el of the T2-T3. Coronal image demonstrates a curvature of the spine. IMPRESSION: 1. Postsurgical changes are seen with no evidence of canal stenosis or discrete herniation. 2. There is degenerative disc disease C4-C5 with uncovertebral joint hypertrophy and mild left and mo derate right foraminal encroachment. 3. Mild increased signal within the left nerve root C7-T1. Left uncovertebral joint infarct and there may be slight contact of the left nerve root, correlate clinically. 4. Sagittal disc protrusion T2-T3 not included in the [id number] of axial images. Correlate with t horacic spine MRI as clinically warranted.
== END | disposition home or self-care (01) ==
LOC: RADMRIMAIN 09:08
PROVIDERS: ATTEND Physical Medicine & Rehabilitation
DX: M50.321 Other cervical disc degeneration at C4-C5 level (principal); M51.24 Other intervertebral disc displacement, thoracic region; M99.71 Connective tissue and disc stenosis of intervertebral foramina of cervical region
CPT/HCPCS: 72156; A9585

== ENCOUNTER → 2022-10-11 | Outpatient (CLI) | payer MEDICARE, OTHER ==
[2022-10-11 14:53] LABS: Basophils # (A) 0.05 X 10*3/uL (0.00-0.10); Basophils % (A) 0.7 %; Eosinophils # (A) 0.27 X 10*3/uL (0.04-0.35); Eosinophils % (A) 3.9 %; HCT 46.2 % (39.6-50.0); Lymphocytes # (A) 1.42 X 10*3/uL (0.90-5.00); Lymphocytes % (A) 20.3 %; MCH 29.4 pg (27.0-32.0); MCHC 32.5 d/dL (32.0-37.0); MCV 90.4 FL (80.0-97.0); Mean Platelet Volume 12.2 FL (9.5-12.2); Monocytes # (A) 0.46 X 10*3/uL (0.20-1.00); Monocytes % (A) 6.6 %; NRBC Per 100 WBC 0 X 10*3/uL (0.00-0.01); Neutrophils # (A) 4.77 X 10*3/uL (1.80-7.70); Neutrophils % (A) 68.1 %; Platelet Count 263 X 10*3/uL (140-440); RBC 5.11 X 10*6/uL (4.40-5.60); RDW 12.4 % (11.5-14.5)
[2022-10-11 14:58] LABS: Blood Urea Nitrogen 17.4 mg/dL (9.0-27.0); Calcium 9.9 mg/dL (8.7-10.3); Carbon Dioxide 25.3 mmol/L (21.6-31.8); Chloride 104 mmol/L (96-109); Glucose 111 mg/dL (70-110); Potassium 4.4 mmol/L (3.5-5.5); Sodium 141 mmol/L (135-145)
== END | disposition home or self-care (01) ==
LOC: LABPAT 10:54
PROVIDERS: ATTEND Orthopaedic Surgery Hand Surgery
DX: Z01.812 Encounter for preprocedural laboratory examination (principal); M65.341 Trigger finger, right ring finger; I45.10 Unspecified right bundle-branch block; I44.4 Left anterior fascicular block; I51.7 Cardiomegaly; R94.31 Abnormal electrocardiogram [ECG] [EKG]
CPT/HCPCS: 80048; 85025; 93005

== ENCOUNTER 2022-10-19 06:45 | Day surgery (SDC) | payer MEDICARE, OTHER ==
[2022-10-11 14:34] VITALS: BMI 31.4
--- NOTE | 2022-10-18 10:47 | P.HPOR ---
History of Present Illness H&P Date: 10/18/22 Subjective: This is a 62 year old male that presents today for initial evaluation regarding a several month history of right ring finger pain, swelling and limited range of motion. He states the finger is now locked down in a fixed flexed position requiring passive correction of the digit. He denies any injury or inciting event. He has a history of middle and ring finger A1 Shawnee releases for trigger fingers on the contralateral side which she responded well to. He denies any numbness or tingling. Physical Examination: RUE: AIN/PIN/Radial/Ulnar/Median motor intact. Radial/Ulnar/Median SILT. 2+/4 Radial/Ulnar pulses palpated. 5/5 APB, 5/5 FDI. Negative Finkelsteins, negative CMC grind, negative Durkan's compression. TTP over RRF A1 shawnee with locking, catching and clicking. Impression: 1.) Right ring finger trigger finger Plan: Diagnosis and treatment options were discussed with the patient. We discussed steroid injection vs A1 shawnee release and he states he has had bad reactions to steroids in the past and responded well to A1 shawnee release on the contralateral hand and wishes to pursue a right ring finger A1 shawnee release. Risks and benefits of surgery including bleeding, infection, damage to surrounding tissue, need for further surgery, residual numbness were discussed and the patient wished to go forward with surgery.The patient was agreeable with this plan. CC: Donita Andrew M.D. -Satish Childs DO Orthopedic Hand/Upper Extremity Surgeon Past Medical History Past Medical History: Cancer, Chest Pain / Angina, GERD/Reflux, Hyperlipidemia, Musculoskeletal Disorder, Osteoarthritis (OA) Additional Past Medical History / Comment(s): prostate cancer, hypoglycemia, "takes him longer to stop bleeding after tooth extraction", hx kidney stone, occ SOB. Chronic back pain, NT/pain lt leg; leg gives out, hx falls. History of Any Multi-Drug Resistant Organisms: None Reported Past Surgical History: Hernia Repair, Orthopedic Surgery, Prostate Surgery Additional Past Surgical History / Comment(s): RADICAL PROSTATECTOMY 08/16/13, Neck surgery, RIGHT ROTATOR CUFF X2, LEFT ROTATOR CUFF, PAIN CLINIC PROCEDURES, LEFT HAND SURGERY -TRIGGER FINGER REPAIR Past Anesthesia/Blood Transfusion Reactions: Motion Sickness, Postoperative Nausea & Vomiting (PONV) Additional Past Anesthesia/Blood Transfusion Reaction / Comment(s): states profuse sweating and severe vomiting after previous surgeries at [facility] Past Psychological History: Anxiety, Depression Smoking Status: Former smoker Past Alcohol Use History: None Reported Additional Past Alcohol Use History / Comment(s): SMOKED FROM [id number] . SMOKED PPD: 1 Past Drug Use History: None Reported - Past Family History Mother Family Medical History: No Reported History Father Family Medical History: Myocardial Infarction (PR) Medications and Allergies Home Medications Medication Instructions Recorded Confirmed Type Atorvastatin [Lipitor] 80 mg PO PC-LUNCH 08/14/13 10/11/22 History Pantoprazole Sodium [Protonix] 40 mg PO QAM 08/14/13 10/11/22 History clonazePAM [KlonoPIN] 2 mg PO BID 08/14/13 10/11/22 History Hydrocodone/Acetaminophen [[place] 1 tab PO QID PRN 10/11/22 10/11/22 History 10-325] Allergies Allergy/AdvReac Type Severity Reaction Status Date / Time Penicillins Allergy Dyspnea, Verified 10/11/22 14:27 rash prednisone Allergy Confusion Verified 10/11/22 14:27 Physical Examination Osteopathic Statement: *. No significant issues noted on an osteopathic structural exam other than those noted in the History and Physical/Consult.
[~2022-10-19 06:45] MED LIST changes: -IV FLUID CONTINUATION 1,000 ML IV ONE; -LIDOCAINE 1% (10MG/ML) FOR IV START INTRADERMA ONE; -MIDAZOLAM 2 MG/2 ML VIAL ONE; +ONDANSETRON 4 MG/2 ML VIAL IVP ONE; +Pre Op ABX Message 1 EACH MISC MISCELLANE ONE; -ROPIVACAINE 5MG/ML 20ML VIAL ONE; -fentaNYL (PF) 50 MCG/ML 2 ML AMP ONE
[2022-10-19] MEDS ORDERED: HYDROmorphone 0.5 MG/0.5 ML SYRINGE IVP PRN (07:00)
[2022-10-19 07:12] VITALS: RESP 16; TEMP 97.3
[2022-10-19 07:21] LABS: Glucose,Whole Blood 104 mg/dL (70-110)
[2022-10-19] MEDS ORDERED: LIDOCAINE 2% INJ 20 MG/ML (2 ML VIAL) ONE (07:48)
[2022-10-19] MEDS ORDERED: fentaNYL (PF) 50 MCG/ML 2 ML AMP ONE (07:48)
[2022-10-19] MEDS ORDERED: PROPOFOL 10 MG/ML 20 ML VIAL IV ONE (07:48)
[2022-10-19] MEDS ORDERED: MIDAZOLAM 2 MG/2 ML VIAL ONE (07:48)
[2022-10-19] MEDS ORDERED: BUPIVACAINE (PF) 0.5% 30 ML VIAL SQ ONE (07:56)
[2022-10-19] MEDS ORDERED: LIDOCAINE 2% (PF) 20 MG/ML 10 ML AMP SQ ONE (07:56)
--- NOTE | 2022-10-19 08:19 | P.OP ---
Date of Procedure: 10/19/22 Preoperative Diagnosis: Right ring finger trigger finger Postoperative Diagnosis: Right ring finger trigger finger Procedure(s) Performed: Right ring finger A1 shawnee release Anesthesia: MAC Surgeon: Satish Childs Cork Mixer #1: Kenji Hodges Estimated Blood Loss (ml): 0 Pathology: none sent Condition: stable Disposition: PACU Description of Procedure: This is a 62 year old male who presents today for a right ring finger trigger finger A1 shawnee release after having failed conservative treatment. Risks and benefits of surgery were discussed with the patient including bleeding, damage to surrounding tissue, infection, need for further surgery as well as risks of anesthesia including pulmonary embolism and even and the patient wished to proceed with surgical intervention. The patient was seen in the pre-operative area by myself. Consent and H&P were completed and updated. The correct extremity was marked in the pre-operative area by myself and all other questions were answered. Operative Narrative: The patient was brought to the operating room by the department of anesthesia. They remained on the portable stretcher and a rolling hand table was brought to the side of the operative extremity. Pre-operative time out was performed indicating the correct patient, procedure and laterality. All in the room agreed. Pre-operative antibiotics were given prior to skin incision. The patient was then drifted off to sleep by the department of anesthesia. MAC anesthesia was utilized and a 50:50 mixture of 1% Lidocaine and 0.5% bupivacaine was injected into the subcutaneous tissues of the palmar skin, ccs total. A nonsterile tourniquet was then applied to the operative extremity and the right upper extremity was then prepped and draped in normal sterile fashion. The operative extremity was the exsanguinated with an esmarch bandage and the tourniquet was inflated to 250mmHg. Oblique incision was made at the base of the right ring finger. Blunt dissection was taken down to the level of the A1 shawnee. Ragnell retractors were placed both radially and ulnarly to protect neurovascular bundles. Littler tenotomy scissors were then used to release the A1 shawnee from proximal to distal under direct visualization. Proximal fascial attachments were released. The tendon was then taken through range of motion and no locking or catching was appreciated. The wound was then closed with interrupted 4-0 nylon sutures in a horizontal mattress fashion. Sterile dressing consisting of adaptic, 4x4s, webril, and an noe wrap was applied. Tourniquet was let down and the hand was immediately well perfused. The patient was then woken by the department of anesthesia and transferred to PACU in stable condition. Kenji Hodges was present to assist in the procedure. Satish Childs D.O. Orthopedic Hand/Upper Extremity Surgeon
[2022-10-19 08:39] VITALS: BP 135/86; PULSE 65
== END 2022-10-19 09:13 | disposition home or self-care (01) ==
LOC: OR 06:45
PROVIDERS: ATTEND Orthopaedic Surgery Hand Surgery
DX: M65.341 Trigger finger, right ring finger (principal); K21.9 Gastro-esophageal reflux disease without esophagitis; E78.5 Hyperlipidemia, unspecified; M19.90 Unspecified osteoarthritis, unspecified site; G89.29 Other chronic pain; Z85.46 Personal history of malignant neoplasm of prostate; Z90.79 Acquired absence of other genital organ(s); Z87.891 Personal history of nicotine dependence; Z82.49 Family history of ischemic heart disease and other diseases of the circulatory system; Z79.899 Other long term (current) drug therapy
CPT/HCPCS: 26055; J2250; J2001 ×2; J2405; J3010; J2704; J0665

== ENCOUNTER → 2023-03-06 | Outpatient (CLI) | payer OTHER, MEDICARE ==
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
== END | disposition home or self-care (01) ==
LOC: RADCTMAIN 11:11
PROVIDERS: ATTEND Orthopaedic Surgery
DX: M47.812 Spondylosis without myelopathy or radiculopathy, cervical region (principal); M99.71 Connective tissue and disc stenosis of intervertebral foramina of cervical region; M48.02 Spinal stenosis, cervical region
CPT/HCPCS: 72125

== ENCOUNTER → 2023-03-09 | Outpatient (CLI) | payer OTHER, MEDICARE ==
[2023-03-09 13:27] VITALS: BP 142/82; PULSE 75; RESP 15; TEMP 98.6
--- NOTE | 2023-03-09 14:55 | P.PAINPG ---
PQRS Measure Charge Sheet Comment: A 63 yr old male with a history of severe and chronic LBP secondary to lumbar DDD and spondylosis with facet arthropathy without myelopathy presents today for evaluation. Pt has previously had a RFA of the L3-L4, L4-L5, L5-S1 in and experienced 95% pain relief > 2 yrs s/p procedure. Pain level is provoked at 9 /10 in intensity, constant, predominantly axial, localized in the lumbar spine, dull in character without pain. Pain is provoked by bending or walking/ standing for periods > 15 min. Pain is alleviated with RFA in 2020, heat, medications ([place]), manual massage and rest. Pt had 3 weekly chiropractic visits in Jan 2023 which were discontinued due to invoking intractable pain. Oswestry axial pain score at 26. Interventional pain procedures completed include BL RFA L2-L5 (2020) Patient is currently on [place], Robaxin, Ibu Patient denies any side effects of the medication(s), denies excessive drowsiness or sleepiness, denies suicidal ideation and reports that the current pain medication is helping to control the pain and improve activities of daily living. Patient denies any motor or sensory deficits. Patient denies any fever or night sweats, denies any change in the bowel movements or urination. Physical Examination: -Constitutional: Cooperative. Not in acute distress . - Neurologic: Cranial nerve II to XII intact. No focal neurological deficits. - Psychatric: Alert & oriented x 3. Matching mood & appropriate affect. Judgment and insight intact. - Musculoskeletal: Cervical spine: Muscle bulk/ tone/ strength in the bilateral upper extremities normal Vertebral body tenderness to palpation over Spurling test positive Distraction test positive Facet loading test positive TTP Thoracic spine Muscle bulk / tone/ strength in the bilateral paraspinal muscles normal Vertebral body tender to palpation over Facet loading test positive TTP Lumbar spine: Motor bulk/ tone/ strength lower extremities , thigh and legs : 5/5 Deep tendon reflexes : Normal Knee Jerk. Normal Ankle Jerk . Vertebral body tenderness to palpation over Campoverde Test positive Lumbar Facet Loading Test positive over BL L4-L5, L5-S1 Straight Leg Raise: positive at 30 degrees right side/ left side Gaenslen's Test positive Sacral spine : Severe tenderness over the Sacroiliac joint: right side / left side Range of motion: Flexion of the lumbar spine <60 degrees Range of motion: Extension of the lumbar spine <20 degrees Gaenslen's Test positive right side / left side Maribell test: positive right side / left side Thigh Thrust Test positive right side / left side Sacral Thrust Test positive right side / left side Assessment and plan: Chronic LBP secondary to lumbar DDD, spondylosis with facet arthropathy without myelopathy Recommendation of lumbar x ray M51.36 May need additional testing if indicated. Exhibited substantial pain relief w previous BL RFA of the L3-L4, L4- L5, L5-S1 in 2020. Risks, benefits of procedure discussed and pt verbalized understanding. Admits to anticoagulant use or medical history of diabetes. Protocol for discontinuation/ continuation of medications ashanti procedure discussed. Minimal anesthesia provided, if clinically indicated, consisting of Versed and Fentanyl. All questions answered. I have spent less than 30 minutes on patient care today. Dr Grover was available by phone for the evaluation of this patient. The time was used to review the medical records including relevant urine studies and Prescription history (MAPs), review of the available imaging, evaluation and examination of the patient, coordination of care with the medical staff and if applicable referring physicians, as well as creation of the medical record PQRS Narrative: Smoking Status Former smoker Hx Alcohol Use (MH) No Home Medications: Ambulatory Orders Atorvastatin [Lipitor] 80 mg PO PC-LUNCH 08/14/13 Pantoprazole Sodium [Protonix] 40 mg PO QAM 08/14/13 clonazePAM [KlonoPIN] 2 mg PO BID 08/14/13 Hydrocodone/Acetaminophen [[place] 10-325] 1 tab PO QID PRN 10/11/22 Controlled Substance Measures - Controlled Substance Measures Is patient prescribed a controlled substance at discharge?: No
== END ==
LOC: PNWHC3 12:40
PROVIDERS: ATTEND Specialist
DX: M51.37 Other intervertebral disc degeneration, lumbosacral region (principal); M47.817 Spondylosis without myelopathy or radiculopathy, lumbosacral region; M54.50 Low back pain, unspecified; Z88.0 Allergy status to penicillin; Z88.8 Allergy status to other drugs, medicaments and biological substances; Z87.891 Personal history of nicotine dependence
CPT/HCPCS: 99211

== ENCOUNTER → 2023-03-09 | Outpatient (CLI) | payer MEDICARE, OTHER ==
--- NOTE | 2023-03-09 19:57 | XR ---
EXAMINATION TYPE: XR lumbar spine 3V DATE OF EXAM: 03/09/2023 Comparison: None Clinical History: 63-year-old male M54.50 Findings: A dextro convex curvature. 5 lumbar type vertebral bodies. Mild to moderate degenerative disc disease and endplate spondylosis is present throughout. Facet arthropathy mid to lower lumbar spine. Vertebr al body heights are preserved and alignment is maintained. Impression: Mild to moderate degenerative disc disease. Facet arthropathy mid to lower lumbar spine. No vertebral compression collapse or malalignment.
== END | disposition home or self-care (01) ==
LOC: RADXRMAIN 13:05
PROVIDERS: ATTEND Physician Assistant Medical
DX: M51.36 Other intervertebral disc degeneration, lumbar region (principal); M47.816 Spondylosis without myelopathy or radiculopathy, lumbar region
CPT/HCPCS: 72100

== ENCOUNTER → 2023-03-16 | Outpatient (CLI) | payer OTHER, MEDICARE ==
--- NOTE | 2023-03-26 14:42 | MR ---
EXAMINATION TYPE: MR lumbar spine wo con DATE OF EXAM: 03/16/2023 COMPARISON: Radiograph on 01/17/2024 HISTORY: 63-year-old male M51.3, Low back pain into mayela lower extremities TECHNIQUE: Multiplanar, multisequence images of the lumbar spine were acquired without IV contrast. FINDINGS: Vertebral body heights are preserved. There is facet arthropathy throughout. Overall alignment is maintained. Conus medullaris is normal. Lctg-ig-zzazlmdo multilevel degenerative disc disease with desiccated and bulging disks throughout. M ild disc space narrowing lower lumbar spine. Changes of mild spinal canal stenosis at both L3-L4 and L4-L5. At L1-L2 and L2-L3, disc bulging impressing on the ventral thecal sac but without significant spinal canal stenosis. Tiny posterior annular fissure at L2-L3. On the right, changes resulting in moderate neuroforaminal stenoses at L3-L4 and L4-L5. More severe n euroforaminal narrowing at L5-S1. Mild L2-L3. On the left, changes result in moderate neuroforaminal stenosis at L3-L4. Mild at multiple additional levels. No suspicious bone marrow replacement. No prevertebral paravertebral soft tissue abnormality seen. IMPRESSION: 1. Akbf-og-hrjfefah multilevel degenerative disc disease along with hypertrophic facet arthropathy mi d to lower lumbar spine. Small posterior annular fissure at L2-L3. 2. Changes result in overall mild spinal canal stenosis at L3-L4 and L4-L5. Impression onto the ventr al thecal sac also present at L1-L2 and L2-L3 but without significant spinal canal stenosis here. 3. Variable neuroforaminal stenoses as outlined above, severe on the right at L5-S1. Moderate at mult iple levels, right greater than left.
== END | disposition home or self-care (01) ==
LOC: RADMRIMAIN 12:54
PROVIDERS: ATTEND Specialist
DX: M51.16 Intervertebral disc disorders with radiculopathy, lumbar region (principal); M47.26 Other spondylosis with radiculopathy, lumbar region; M48.061 Spinal stenosis, lumbar region without neurogenic claudication; M99.73 Connective tissue and disc stenosis of intervertebral foramina of lumbar region
CPT/HCPCS: 72148

== ENCOUNTER → 2023-04-17 | Outpatient (CLI) | payer MEDICARE, OTHER ==
--- NOTE | 2023-04-17 14:37 | P.PAINPG ---
PQRS Measure Charge Sheet Comment: A 63 yr old male with a history of severe and chronic LBP secondary to lumbar DDD and spondylosis with facet arthropathy without myelopathy presents today for evaluation. Pt has previously had a RFA of the L3-L4, L4-L5, L5-S1 in June 2020 and experienced 95% pain relief > 2 yrs s/p procedure. Pain level is provoked at 9 /10 in intensity, constant, predominantly axial, localized in the lumbar spine, dull in character without pain. Pain is provoked by bending or walking/ standing for periods > 15 min. Pain is alleviated with RFA in 2020, heat, medications ([place]), manual massage and rest. Pt had 3 weekly chiropractic visits in Jan 2023 which were discontinued due to invoking intractable pain. Oswestry axial pain score at 26. Interventional pain procedures completed include BL RFA L2-L5 (Apr 2019, June 2020) Patient is currently on [place], Robaxin, Ibu Patient denies any side effects of the medication(s), denies excessive drowsiness or sleepiness, denies suicidal ideation and reports that the current pain medication is helping to control the pain and improve activities of daily living. Patient denies any motor or sensory deficits. Patient denies any fever or night sweats, denies any change in the bowel movements or urination. Physical Examination: -Constitutional: Cooperative. Not in acute distress . - Neurologic: Cranial nerve II to XII intact. No focal neurological deficits. - Psychatric: Alert & oriented x 3. Matching mood & appropriate affect. Judgment and insight intact. - Musculoskeletal: Cervical spine: Muscle bulk/ tone/ strength in the bilateral upper extremities normal Vertebral body tenderness to palpation over Spurling test positive Distraction test positive Facet loading test positive TTP Thoracic spine Muscle bulk / tone/ strength in the bilateral paraspinal muscles normal Vertebral body tender to palpation over Facet loading test positive TTP Lumbar spine: Motor bulk/ tone/ strength lower extremities , thigh and legs : 5/5 Deep tendon reflexes : Normal Knee Jerk. Normal Ankle Jerk . Vertebral body tenderness to palpation Campoverde Test positive Lumbar Facet Loading Test positive BL L4-L5, L5-S1 Straight Leg Raise: positive at 30 degrees right side/ left side Gaenslen's Test positive Sacral spine : Severe tenderness over the Sacroiliac joint: right side / left side Range of motion: Flexion of the lumbar spine <60 degrees Range of motion: Extension of the lumbar spine <20 degrees Gaenslen's Test positive right side / left side Maribell test: positive right side / left side Thigh Thrust Test positive right side / left side Sacral Thrust Test positive right side / left side Imaging: MRI noncontrast of the lumbar spine from 03/16/23 reviewed Assessment and plan: Chronic LBP secondary to lumbar DDD, spondylosis with facet arthropathy without myelopathy Recommendation of BL RFA L3-L5. Pt exhibited substantial pain relief w prior BL RFA of the lumbar spine from June 2020. Risks, benefits of procedure discussed and pt verbalized understanding. Admits to anticoagulant use or medical history of diabetes. Protocol for discontinuation/ continuation of medi cations ashanti procedure discussed. Minimal anesthesia provided, if clinically indicated, consisting of Versed and Fentanyl. All questions answered. I have spent less than 30 minutes on patient care today. Dr Grover was available by phone for the evaluation of this patient. The time was used to review the medical records including relevant urine studies and Prescription history (MAPs), review of the available imaging, evaluation and examination of the patient, coordination of care with the medical staff and if applicable referring physicians, as well as creation of the medical record - Pain Location Bilateral Lower Back Non-Pharmacological Interventions: Chiropractic Treatment, Elevation, Heat, Inactivity, Massage, Physical Therapy, Sitting Pharmacological Interventions: Epidural, PRN Medication, Scheduled Medication PQRS Narrative: Smoking Status Former smoker Hx Alcohol Use (MH) No Home Medications: Ambulatory Orders Atorvastatin [Lipitor] 80 mg PO PC-LUNCH 08/14/13 Pantoprazole Sodium [Protonix] 40 mg PO QAM 08/14/13 clonazePAM [KlonoPIN] 2 mg PO BID 08/14/13 Hydrocodone/Acetaminophen [[place] 10-325] 1 tab PO QID PRN 10/11/22 Controlled Substance Measures - Controlled Substance Measures Is patient prescribed a controlled substance at discharge?: No
[2023-04-17 14:46] VITALS: BP 128/83; PULSE 93; RESP 16; TEMP 98.6
== END ==
LOC: PNWHC3 13:58
PROVIDERS: ATTEND Specialist
DX: M51.37 Other intervertebral disc degeneration, lumbosacral region (principal); M47.817 Spondylosis without myelopathy or radiculopathy, lumbosacral region; G89.29 Other chronic pain; Z87.891 Personal history of nicotine dependence; Z88.0 Allergy status to penicillin; Z88.8 Allergy status to other drugs, medicaments and biological substances
CPT/HCPCS: 99211

== ENCOUNTER 2023-05-16 07:54 | Day surgery (SDC) | payer MEDICARE, OTHER ==
[2023-05-11 15:53] VITALS: BMI 30.5
[2023-05-16 08:38] LABS: Glucose,Whole Blood 92 mg/dL (70-110)
[2023-05-16] MEDS: LACTATED RINGERS 1,000 ML IV SCH (08:39)
[2023-05-16] MEDS ORDERED: ROPIVACAINE 5MG/ML 20ML VIAL ONE (08:46)
[2023-05-16 09:01] VITALS: RESP 16; TEMP 97.8
--- NOTE | 2023-05-16 09:04 | P.PCN ---
Date of Procedure: 05/16/23 Procedure(s) Performed: DESCRIPTION OF PROCEDURE(S): PROCEDURE: Bilateral lumbar medial branch block L4-L5, L5-S1 with fluoroscopy PREOPERATIVE DIAGNOSIS : 1- Lumbar spondylosis with Facet Arthropathy without myelopathy . 2- Lumber degenerative disc disease POSTOPERATIVE DIAGNOSIS: 1- Lumbar spondylosis with Facet Arthropathy without myelopathy . 2- Lumber degenerative disc disease PROCEDURE: Diagnostic bilateral L4 -5 , and L5-S1 medial branch block under fluoroscopy ANESTHESIA: None COMPLICATION: None. IV FLUIDS: 100 mL of normal saline. PROCEDURE INDICATION: Chronic low back pain secondary to Facet arthropathy unresponsive to conservative treatment. Patient had excellent response with greater than 90% pain relief and improved ADLs to lumbar radio frequency ablation however it has been over 2 years. PROCEDURE DESCRIPTION: the patient was seen and identified in the preop holding area , risks and benefits and possible complications of the procedure and alternative were discussed with the patient, and the patient agreed to proceed with the procedure and signed the consent IV was started and vital signs monitored during the procedure and fluoroscopy was used to maximize the benefit and accuracy of the needle placement, and sedation was given to decrease patient anxiety, patient was taken to the procedure room and placed in prone position vital signs monitored in the back prepped with chlorhexidine X3 then under strict sterile technique using a right oblique fluoroscopy ,the junction of the transverse process and the superior articulating process of the right L4- 5, and L5-S1 vertebra which corresponding to the fluoroscopy image of the eye of the Cal dog on the block side for the medial branches and subsequently , a 25-gauge Quincke-type needle was used and each time placed at the junction of the base of the transverse process and the superior articular process at the appropriate level L4, L5, S1 pedicle. The needle was advanced until the periosteum contacted, needle placement confirmed with AP oblique and lateral view and after appropriate needle placement confirmed, and after negative aspiration for heme and CSF and there was no p aresthesia 1 mL of Ropivacaine 0.5% was injected at each level after negative aspiration the needle subsequently removed and the same procedure repeated for the left side and the right side L4- 5 and L5-S1 levels. At the end of the procedure and the needles removed and a bandage applied after the skin was cleaned the cleaning solution patient taken to recovery room in stable condition and monitors in the recovery room for 20-30 minutes and discharged home in stable condition after discharge criteria met and patient will return for radiofrequency ablation of the bilateral L4 5 and L5-S1 facet joints
[2023-05-16] MEDS: LACTATED RINGERS 1,000 ML IV ONE (09:07)
--- NOTE | 2023-05-16 09:13 | FL ---
EXAMINATION TYPE: FL guided pain mgmt statistic DATE OF EXAM: 05/16/2023 HISTORY: Fluoroscopy time Total dose area product (DAP) in uGy*m?, mGy*cm? (or similar): 0.08737 IMPRESSION: 1. Fluoroscopy time.
[2023-05-16 09:17] LABS: Glucose,Whole Blood 93 mg/dL (70-110)
[2023-05-16 09:36] VITALS: BP 142/90; PULSE 66
== END 2023-05-16 09:37 | disposition home or self-care (01) ==
LOC: ORPAIN 07:54
PROVIDERS: ATTEND Anesthesiology
DX: M51.36 Other intervertebral disc degeneration, lumbar region (principal); M47.816 Spondylosis without myelopathy or radiculopathy, lumbar region; G89.29 Other chronic pain; E16.2 Hypoglycemia, unspecified; Z88.0 Allergy status to penicillin; Z88.8 Allergy status to other drugs, medicaments and biological substances
CPT/HCPCS: 64494 ×2; 99152; 64493; J2795

== ENCOUNTER → 2023-06-12 | Outpatient (CLI) | payer MEDICARE, OTHER ==
--- NOTE | 2023-06-12 13:59 | P.PAINPG ---
PQRS Measure Charge Sheet Comment: A 63 yr old male with a history of severe and chronic LBP secondary to lumbar DDD and spondylosis with facet arthropathy without myelopathy presents today for evaluation s/p BL MBB L4-L5, L5-S1#1. Pt states he experienced 80% pain relief x 24 hrs s/p procedure. Pain level is provoked at 9 /10 in intensity, constant, predominantly axial, localized in the lumbar spine, dull in character without shooting pain. Pain is provoked by bending or walking/ standing for periods > 15 min. Pain is alleviated with RFA in 2020, heat, medications, manual massage and rest. Pt had 3 weekly chiropractic visits in Jan 2023 which were discontinued due to invoking intractable pain. Oswestry axial pain score at 25. Interventional pain procedures completed include BL RFA L2-L5 (Apr 2019, June 2020), BL MBB L3-L5 x1 Patient is currently on [place], Robaxin, Ibu Patient denies any side effects of the medication(s), denies excessive drowsiness or sleepiness, denies suicidal ideation and reports that the current pain medication is helping to control the pain and improve activities of daily living. Patient denies any motor or sensory deficits. Patient denies any fever or night sweats, denies any change in the bowel movements or urination. Physical Examination: -Constitutional: Cooperative. Not in acute distress . - Neurologic: Cranial nerve II to XII intact. No focal neurological deficits. - Psychatric: Alert & oriented x 3. Matching mood & appropriate affect. Judgment and insight intact. - Musculoskeletal: Cervical spine: Muscle bulk/ tone/ strength in the bilateral upper extremities normal Vertebral body tenderness to palpation over Spurling test positive Distraction test positive Facet loading test positive TTP Thoracic spine Muscle bulk / tone/ strength in the bilateral paraspinal muscles normal Vertebral body tender to palpation over Facet loading test positive TTP Lumbar spine: Motor bulk/ tone/ strength lower extremities , thigh and legs : 5/5 Deep tendon reflexes : Normal Knee Jerk. Normal Ankle Jerk . Vertebral body tenderness to palpation Campoverde Test positive Lumbar Facet Loading Test positive BL L4-L5, L5-S1 Straight Leg Raise: positive at 30 degrees right side/ left side Gaenslen's Test positive Sacral spine : Severe tenderness over the Sacroiliac joint: right side / left side Range of motion: Flexion of the lumbar spine <60 degrees Range of motion: Extension of the lumbar spine <20 degrees Gaenslen's Test positive right side / left side Maribell test: positive right side / left side Thigh Thrust Test positive right side / left side Sacral Thrust Test positive right side / left side Imaging: MRI noncontrast of the lumbar spine from 03/16/23 reviewed Assessment and plan: Chronic LBP secondary to lumbar DDD, spondylosis with facet arthropathy without myelopathy Recommendation of BL MBB L3-L5 #2. May need a series f injections for optimal pain relief. Risks, benefits of procedure discussed and pt verbalized understanding. Admits to anticoagulant use or medical history of diabetes. Protocol for discontinuation/ continuation of medications ashanti procedure discussed. Minimal anesthesia provided, if clinically indicated, consisting of Versed and Fentanyl. All questions answered. I have spent less than 30 minutes on patient care today. Dr Grover was available by phone for the evaluation of this patient. The time was used to review the medical records including relevant urine studies and Prescription history (MAPs), review of the available imaging, evaluation and examination of the patient, coordination of care with the medical staff and if applicable referring physicians, as well as creation of the medical record PQRS Narrative: Smoking Status Former smoker Hx Alcohol Use (MH) No Home Medications: Ambulatory Orders Atorvastatin [Lipitor] 80 mg PO PC-LUNCH 08/14/13 clonazePAM [KlonoPIN] 2 mg PO BID 08/14/13 Hydrocodone/Acetaminophen [[place] 10-325] 1 tab PO QID PRN 10/11/22 Omeprazole 40 mg PO DAILY 05/11/23 Controlled Substance Measures - Controlled Substance Measures Is patient prescribed a controlled substance at discharge?: No
[2023-06-12 14:07] VITALS: BP 142/87; PULSE 77; RESP 16; TEMP 98
== END ==
LOC: PNWHC3 13:33
PROVIDERS: ATTEND Specialist
DX: M51.37 Other intervertebral disc degeneration, lumbosacral region (principal); M47.817 Spondylosis without myelopathy or radiculopathy, lumbosacral region; G89.29 Other chronic pain; Z87.891 Personal history of nicotine dependence; Z88.0 Allergy status to penicillin; Z88.8 Allergy status to other drugs, medicaments and biological substances
CPT/HCPCS: 99211

== ENCOUNTER 2023-10-30 03:25 | Emergency (ER) | payer MEDICARE, OTHER ==
[2023-10-30 03:31] VITALS: TEMP 98.8
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
[2023-10-30] MEDS: SODIUM CHLORIDE 0.9% 1,000 ML IV STA ×2 (03:52→04:48)
[2023-10-30] MEDS: KETOROLAC 15 MG/ML 1 ML VIAL IVP STA (03:53)
[2023-10-30] MEDS: ONDANSETRON 4 MG/2 ML VIAL IVP STA (03:53)
[2023-10-30] MEDS: MORPHINE SULFATE 4 MG/ML SYRINGE IVP STA ×2 (03:54→05:29)
[2023-10-30 03:56] LABS: Basophils % (A) 0 %; Eosinophils # (A) 0.2 k/uL (0-0.7); Eosinophils % (A) 1 %; HCT 42.5 % (39.0-53.0); Lymphocytes # (A) 1.2 k/uL (1.0-4.8); Lymphocytes % (A) 7 %; MCH 29.1 pg (25.0-35.0); MCHC 32.9 g/dL (31.0-37.0); MCV 88.5 fL (80.0-100.0); Mean Platelet Volume 8.8; Monocytes # (A) 0.7 k/uL (0-1.0); Monocytes % (A) 4 %; Neutrophils # (A) 13.7 k/uL (1.3-7.7); Neutrophils % (A) 87 %; Platelet Count 232 k/uL (150-450); RDW 13.1 % (11.5-15.5); WBC 15.8 k/uL (3.8-10.6)
[2023-10-30 04:10] LABS: ALT 29 U/L (4-49); AST 30 U/L (17-59); African American GFR (CKD) 76 (>60 ml/min/1.73 sqM); Albumin 4.5 g/dL (3.5-5.0); Alkaline Phosphatase 39 U/L (38-126); Amylase 78 U/L (30-110); Anion Gap 6 mmol/L; Blood Urea Nitrogen 21 mg/dL (9-20); Calcium 9.2 mg/dL (8.4-10.2); Carbon Dioxide 22 mmol/L (22-30); Chloride 106 mmol/L (98-107); Glucose 165 mg/dL (74-99); Lipase 154 U/L (23-300); Non-African American GFR(CKD) 66 (>60 ml/min/1.73 sqM); Potassium 3.5 mmol/L (3.5-5.1); Sodium 134 mmol/L (137-145); Total Bilirubin 0.4 mg/dL (0.2-1.3); Total Protein 7.4 g/dL (6.3-8.2)
--- NOTE | 2023-10-30 04:32 | CT ---
EXAM: CT Abdomen and Pelvis Without Intravenous Contrast CLINICAL HISTORY: Abdominal pain. Left flank pain. TECHNIQUE: Axial computed tomography images of the abdomen and pelvis without intravenous contrast. CTDI is 12 mGy and DLP is 751.8 mGy-cm. This CT exam was performed using one or more of the following dose reduction techniques: automated exposure control, adjustment of the mA and/or kV according to patient size, and/or use of iterative reconstruction technique. COMPARISON: No relevant prior studies available. FINDINGS: Lung bases: Mild bibasilar atelectasis. ABDOMEN: Liver: Unremarkable. Gallbladder and bile ducts: Unremarkable. No calcified stones. No ductal dilation. Pancreas: Unremarkable. No ductal dilation. Spleen: Unremarkable. No splenomegaly. Adrenals: Unremarkable. No mass. Kidneys and ureters: Left perinephric stranding. Mild left hydronephrosis and diffuse hydroureter to the level of a 3 x 2.8 mm obstructing calculus in the distal left ureter just proximal to the urinary bladder. Right kidney ureter unremarkable. Stomach and bowel: Small hiatal hernia. No obstruction or ileus. A few left colon diverticula without evidence for diverticulitis. PELVIS: Appendix: No findings to suggest acute appendicitis. Bladder: Partially contracted. No stones. Reproductive: Penile prosthesis including a right pelvic bladder are present. ABDOMEN and PELVIS: Intraperitoneal space: No free air. No free fluid. Bones/joints: No acute fracture. Degenerative changes of the spine. Soft tissues: Unremarkable. Vasculature: Atherosclerotic vascular calcifications. No abdominal aortic aneurysm. Lymph nodes: Unremarkable. No enlarged lymph nodes. IMPRESSION: Obstructing distal left ureteral calculus with associated hydronephrosis and hydroureter. Additional non-acute findings as described above.
[2023-10-30] MEDS: METOCLOPRAMIDE 5 MG/ML 2 ML VIAL IVP STA (04:49)
[2023-10-30] MEDS: diphenhydrAMINE 50 MG/ML 1 ML VIAL IVP STA (04:49)
[2023-10-30] MEDS: HYDROmorphone 0.5 MG/0.5 ML SYRINGE IVP STA (05:33)
[2023-10-30 05:55] LABS: Appearance,Urine Clear (Clear); Bilirubin,Urine Negative (Negative); Blood,Urine Small (Negative); Color,Urine Light Yellow; Glucose,Urine (UA) Trace (Negative); Ketones,Urine Trace (Negative); Leukocyte Esterase,Urine Negative (Negative); Mucus,Urine Rare /hpf; Nitrite,Urine Negative (Negative); PH, Urine 5.5 (5.0-8.0); Protein,Urine Trace (Negative); RBC,Urine 34 /hpf (0-5); Specific Gravity,Urine 1.022 (1.001-1.035); Urobilinogen,Urine <2.0 mg/dL (<2.0); WBC,Urine 1 /hpf (0-5)
[2023-10-30] MEDS: TAMSULOSIN 0.4 MG CAP.ER.24H PO STA (06:12)
[2023-10-30] MEDS: ONDANSETRON 4 MG ODT STARTER PACK 2 TAB BTL PO STA (06:12)
[2023-10-30 06:43] VITALS: BP 168/64; PULSE 71; RESP 20
== END 2023-10-30 06:18 | disposition home or self-care (01) ==
LOC: EC 03:25
DX: R10.9 Unspecified abdominal pain
CPT/HCPCS: 36415; 74176; 80053; 81001; 82150; 83605; 83690; 85025; 93005; 96374; 96375; 96376; 99284